=== PATIENT | female | born 1995 | race Two or more races ===

== ENCOUNTER 2021-08-31 16:39 | Emergency (ER) | payer OTHER ==
[~2021-08-31] VITALS: Ht 162.6 cm; Wt 58.5 kg
[2021-08-31 16:52] VITALS: BP 123/81
== END 2021-08-31 19:27 | disposition home or self-care (01) ==
LOC: ER 16:39
DX: S06.0X0A Concussion without loss of consciousness, initial encounter (principal); W19.XXXA Unspecified fall, initial encounter; Y93.11 Activity, swimming; Y92.34 Swimming pool (public) as the place of occurrence of the external cause; Y99.8 Other external cause status
CPT/HCPCS: 70450